=== PATIENT | female | born 1975 | race Caucasian/White ===

== ENCOUNTER 2016-10-14 17:49 | Emergency (ER) | payer MEDICAID ==
[~2016-10-14] VITALS: Ht 157.5 cm; Wt 105.0 kg
[2016-10-14] MEDS ORDERED: DIPHENHYDRAMINE 50MG/ML VIAL IV ONE (18:15)
[2016-10-14] MEDS ORDERED: METHYLPREDNISOLONE SOD SUCC 125 MG/2 ML VIAL IV ONE (18:15)
[2016-10-14] MEDS ORDERED: LORAZEPAM 2MG/ML CPJ IV ONE (18:30)
[2016-10-14 21:39] VITALS: BP 112/72
== END 2016-10-14 21:40 | disposition home or self-care (01) ==
LOC: ER 18:18
DX: R22.0 Localized swelling, mass and lump, head (principal); R06.02 Shortness of breath; T36.3X5A Adverse effect of macrolides, initial encounter; Y92.89 Other specified places as the place of occurrence of the external cause; F41.9 Anxiety disorder, unspecified; J45.909 Unspecified asthma, uncomplicated
CPT/HCPCS: 93005; 96374; 96375; 99284; J1200; J2060; J2930; Z7610

== ENCOUNTER 2016-11-26 16:34 | Emergency (ER) | payer MEDICAID ==
[~2016-11-26] VITALS: Ht 157.5 cm; Wt 104.0 kg
[2016-11-26 16:57] VITALS: BP 109/67
== END 2016-11-26 20:43 | disposition left against medical advice (07) ==
LOC: ER 20:32
DX: M79.676 Pain in unspecified toe(s) (principal); Z53.21 Procedure and treatment not carried out due to patient leaving prior to being seen by health care provider

== ENCOUNTER 2016-12-03 10:02 | Emergency (ER) | payer MEDICAID ==
[~2016-12-03] VITALS: Ht 157.5 cm; Wt 106.0 kg
[2016-12-03 10:38] VITALS: BP 123/71
== END 2016-12-03 21:22 | disposition left against medical advice (07) ==
LOC: ER 10:02
DX: Z53.21 Procedure and treatment not carried out due to patient leaving prior to being seen by health care provider (principal)

== ENCOUNTER 2017-02-17 15:21 | Emergency (ER) | payer MEDICAID ==
[~2017-02-17] VITALS: Ht 157.5 cm; Wt 111.0 kg
[2017-02-17 15:39] VITALS: BP 133/64
== END 2017-02-17 20:45 | disposition left against medical advice (07) ==
LOC: ER 15:39
DX: F41.9 Anxiety disorder, unspecified (principal); Z53.21 Procedure and treatment not carried out due to patient leaving prior to being seen by health care provider

== ENCOUNTER 2017-03-21 21:24 | Emergency (ER) | payer MEDICAID ==
[~2017-03-21] VITALS: Ht 157.5 cm; Wt 104.0 kg
[2017-03-21] MEDS ORDERED: LORAZEPAM 0.5MG TABLET PO ONE (22:15)
[2017-03-21] MEDS ORDERED: ALBUTEROL (0.5%) 2.5MG/0.5ML NEB HHN ONE (22:15)
[2017-03-21 22:59] VITALS: BP 131/82
== END 2017-03-22 00:10 | disposition home or self-care (01) ==
LOC: ER 22:16
DX: R06.00 Dyspnea, unspecified (principal); J45.909 Unspecified asthma, uncomplicated; F41.9 Anxiety disorder, unspecified; Z88.1 Allergy status to other antibiotic agents; Z98.890 Other specified postprocedural states
CPT/HCPCS: 71010; 93005; 94640; 99284; J7611; Z7610